=== PATIENT | male | born 1985 | race African-American/Black ===

== ENCOUNTER 2025-03-09 03:48 | Inpatient (IN) | payer OTHER ==
[~2025-03-09] VITALS: Ht 180.3 cm; Wt 123.4 kg
[2025-03-09] VITALS (8 sets, daily range): BP systolic 131; BP diastolic 76; PULSE 73–104; RESP 1–20; TEMP 98.7; O2SAT 96–98
[2025-03-09] MEDS: 0.9%NACL 1000ML 1,000 ML IV ONE (04:25)
[2025-03-09 04:34] LABS: IMMATURE GRANULOCYTE ABSOLUTE 0.02 K/uL (0-1); NUCLEATED RED BLOOD CELLS 0.0 % (0.0-0.19); PLATELET COUNT (AUTO) 285 K/uL (130-400); RED BLOOD CELL COUNT(AUTO) 4.54 MIL/uL (4.50-6.20); RED CELL DISTRIBUTION WIDTH 13.2 % (11.0-15.5); WHITE BLOOD COUNT (AUTO) 5.5 K/uL (4.8-10.8)
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
[2025-03-09 04:44] LABS: CREATININE 1.0 mg/dL (0.5-1.3); GLOMERULAR FILTR. RATE CALC 98.0 mL/min (>90); GLUCOSE,RANDOM 104.0 mg/dL (70-105); SODIUM SERUM 136.0 mmol/L (136-145); UREA NITROGEN, BLOOD 11.0 mg/dL (7-18)
[2025-03-09 04:52] LABS: CREATINE KINASE, TOTAL 185.0 U/L (21-232)
--- NOTE | 2025-03-09 05:27 | HMCIMG ---
EXAM: CR Chest, 1 view CLINICAL HISTORY: Shortness of breath. Dyspnea. COMPARISON: None provided. FINDINGS: The lungs show no infiltrates or other acute findings. No pleural effusion or pneumothorax. The cardiomediastinal silhouette is within normal limits. No acute osseous abnormality. IMPRESSION: No acute cardiopulmonary process is evident. /[place]
--- NOTE | 2025-03-09 06:30 | EKG ---
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
[2025-03-09] MEDS: MAGNESIUM 2GM PREMIX 50ML 50 ML IV SCH (06:52)
[2025-03-09 08:06] LABS: RAPID GROUP A STREP negative (NEGATIVE)
[2025-03-09 08:07] LABS: SARS-CoV-2, RNA, NAAT NEGATIVE SARS CoV-2 (NEGATIVE)
--- NOTE | 2025-03-09 08:07 | NUR ---
PULMO CONSULT LUCA JIMENEZ ACCOUNT DIRECTOR MADE AWARE OF PT
[2025-03-09 08:16] LABS: INFLUENZA TYPE A Negative For Type A (NEGATIVE); INFLUENZA TYPE B Negative For Type B (NEGATIVE)
--- NOTE | 2025-03-09 08:36 | CONS ---
[facility] CONSULTATION NOTE Date Patient Seen: Mar 09, 2025 Time of Visit: 08:36 Supervising Physician: Anton Curran MD Reason for Consultation: [facility] Primary Care Physician: Self Referral Outpatient Specialists: [ ] Inpatient Consults: Asthma PROBLEM LIST: Acute asthma exacerbation, POA Acute hypoxic respiratory failure, POA Normocytic anemia, POA Eosinophilia, POA Hyperglycemia, POA Obesity Seizure disorder Bipolar disorder Obesity BMI of 37.9 HPI: This is a 39-year-old obese male with a past medical history of seizures, bi polar disorder and asthma presented to ED for increased shortness of breaths. As per patient shortness of the breath has progressively worsened. He is currently an inmate in [facility] for a proximally 1-1/2 years. Patient reports he normally takes ICS Alvesco BID and Albuterol rescue inhaler but recently ran out of albuterol. Patient also reports he has history of seizures and takes Dilantin. Verified medications with [facility] Nurse and according to their records patient should be on Dilantin 200 mg p.o. at HS and ziprasidone 40 mg q.h.s. for bipolar disorder. Patient also takes saturating 10 mg p.o. daily. He was admitted By Dr Milton to Medical floor for Asthma Exacerbation and we were consulted for pulmonology. On assessment patient is awake alert and oriented x3. He is in no apparent distress. He is able to speak in the same sentences saturating 95% on room air. Heart rate of 84 beats per minute and hemodynamically stable. Only complain is chest tightness with breathing and SOB. On auscultation bilateral upper and lower lobes expiratory wheezing. In the ED received duo neb, Solu-Medrol 125 mg, Rocephin 2 g and was started on NS at 01:25 mL/hour. Chest x-ray showed no acute cardiopulmonary process as expected with asthma exacerbation with some fla ttening of the diaphragm. On laboratory white count is normal H&H is 12.9/38.6 neutrophils of 37.7 eosinophils of 14.3. Chemistries unremarkable, BNP of 6 glucose 211 mg/dL. Phenytoin leveln was low 0.8. COVID and influenza negative. PAST MEDICAL HX: see above PAST SURGICAL HX: noncontributory SOCIAL HISTORY: No tobacco, ETOH, or illicit drug use Coded Allergies: No Known Drug Allergies (Unverified Allergy, Unknown, 03/09/25) REVIEW OF SYSTEMS: Const: no fever, fatigue, or weight changes Eyes: no recent vision problems ENT: No congestion, ear pain, or sore throat C/V: no chest pain, palpitations or edema Resp:+, cough shortness of breaths and wheezing. GI: No abdominal pain, nausea, vomiting, constipation, or diarrhea : No incontinence of or dyuria M/S: No joint or pain swelling Skin: No rash Neuro: no headache, focal numbness, or weakness, dizziness or seizures Psych: no depression or anxiety Heme: no abnormal bruising or bleeding Lymph: no swollen glands PHYSICAL EXAM: GENERAL: alert, weak, awake oriented x 3 HEENT: EOMI, Sclera non icteric, moist mucosa NECK: Supple, no JVD, trachea midline LUNGS: expiratory wheezing to bilateral upper and lower lobes HEART: Regular rate and rhythm. Normal S1 and S2, without murmurs ABD: Abdomen soft, nontender. Bowel sounds present EXT: No clubbing cyanosis or edema NEURO: Alert and oriented to person, follows commands Vital Signs (last 8hr) Date Time Temp Pulse Resp B/P (MAP) Pulse Ox O2 Delivery O2 Flow Rate FiO2 03/09/25 08:12 84 20 03/09/25 08:12 84 20 N/A Room Air 03/09/25 07:39 97.3 87 18 122/69 94 Room Air* 0 03/09/25 06:34 73 20 03/09/25 06:11 73 18 111/73 95 Room Air* 0 03/09/25 05:08 71 18 121/77 95 Room Air* 0 03/09/25 04:26 79 1 03/09/25 04:26 82 18 112/69 95 Room Air* 0 03/09/25 03:51 99.0 86 20 128/89 100 Nasal Cannula 2.0 LABS: Hematology Labs: Test 03/09/25 04:21 Range/Units White Blood Count 5.5 4.8-10.8 K/uL Red Blood Count 4.54 4.50-6.20 MIL/uL Hemoglobin 12.9 L 14.0-18.0 g/dL Hematocrit 38.6 L 42-54 % Mean Corpuscular Volume 85.0 79-99 fL Mean Corpuscular Hemoglobin 28.4 27.0-33.0 pg Mean Corpuscular Hemoglobin Concent 33.4 32.0-36.0 g/dL Red Cell Distribution Width 13.2 11.0-15.5 % Platelet Count 285 130-400 K/uL Mean Platelet Volume 9.5 7.5-10.5 fL Immature Granulocyte % (Auto) 0.4 0-1 % Neutrophils (%) (Auto) 37.7 L 40.0-77.0 % Lymphocytes (%) (Auto) 39.4 21.0-51.0 % Monocytes (%) (Auto) 7.8 3.0-13.0 % Eosinophils (%) (Auto) 14.3 H 0.0-8.0 % Basophils (%) (Auto) 0.4 0.0-5.0 % Neutrophils # (Auto) 2.1 1.8-7.7 K/uL Lymphocytes # (Auto) 2.2 1.0-4.8 K/uL Monocytes # (Auto) 0.4 0.1-1.0 K/uL Eosinophils # (Auto) 0.79 H 0.00-0.70 K/uL Basophils # (Auto) 0.02 0.00-0.20 K/uL Absolute Immature Granulocyte (auto 0.02 0-1 K/uL Nucleated Red Blood Cells 0.0 0.0-0.19 % Chemistry Labs: Test 03/09/25 04:21 Range/Units Sodium Level 136 136-145 mmol/L Potassium Level 3.5 3.5-5.1 mmol/L Chloride Level 102 101-111 mmol/L Carbon Dioxide Level 28 21-32 mmol/L Blood Urea Nitrogen 11 7-18 mg/dL Creatinine 1.0 0.5-1.3 mg/dL Glomerular Filtration Rate Calc 98 >90 mL/min Random Glucose 104 70-105 mg/dL Total Calcium 8.9 8.5-10.1 mg/dL Total Creatine Kinase 185 21-232 U/L Troponin I High Sensitivity 5.3 4-75 ng/L DIAGNOSTICS / RADIOLOGY RESULTS: [ [facility] [place] [address] [place] [address] IMAGING REPORT Signed PATIENT: JALIL MORENO MR#: [id number] : 1985 SEX: M AGE: 39 LOCATION: [facility] ORDER 4 STATUS: REG ER REPORT#: [id number] SERVICE 2 REASON: Dyspnea/SOB ORDERING PHYSICIAN: BENJIE PAEZ MD PROCEDURE: CXR1VW - CHEST 1VW EXAM: CR Chest, 1 view CLINICAL HISTORY: Shortness of breath. Dyspnea. COMPARISON: None provided. FINDINGS: The lungs show no infiltrates or other acute findings. No pleural effusion or pneumothorax. The cardiomediastinal silhouette is within normal limits. No acute osseous abnormality. IMPRESSION: No acute cardiopulmonary process is evident. /[place] DICTATED BY: ROSY DAVILA Jr., MD DATE: 03/09/25624 ELECTRONICALLY SIGNED BY: ROSY DAVILA Jr., MD DATE: 03/09/25624 ] PLAN Given past medical history of asthma since childhood, patient is likely having an asthma exacerbation. He has been using her inhaler on a daily basis but recently ran out of albuterol inhaler. Nebulizer with beta agonist duoneb and steroid neb with pulmicort will be added. Continue with systemic glucocorticoids and will taper as appropriate. Cover empirically for CAP. Add singulair 10mg po daily and DC cetrizine Continue Seizure medication Dilantin level continue bipolar medication Ziprasidone Pt will require on DC ICS-LABA such as Symbicort for symptom relief and maintenance slow tapering of steroids Teaching on asthma, possible triggers, how to properly use medication follow up with content engineer in 1-2 weeks NEURO: Minimize central acting medications as possible. Maintain fall precautions, adequate lighting during the day PULMONARY: Supplemental 02 as needed. Maintain aspiration precautions at all times CARDIOVASCULAR: Follow hemodynamics. Vital signs per facility protocol GI & NUTRITION: Continue with nutritional support. Continue stool softeners and laxatives as needed. KIDNEYS & ELECTROLYTES: Strict monitoring of intake, output and overall fluid balance. Avoid nephrotoxic medications to the extent possible. Medications to be dosed according to renal function. Monitor electrolytes and replace as needed ENDOCRINE: Maintain blood glucose between 100-180 at all times. Hypoglycemia protocol in place INFECTIOUS DISEASE: Trend temperature, WBC and procalcitonin level Follow cultures, deescalate antibiotics as soon as possible. Panculture if new onset fever ONCOLOGY/HEMATOLOGY/COAGULATION: Monitor for s/s of bleeding Monitor hemoglobin, coagulation studies as needed SKIN: Pressure ulcer prevention per facility protocol Specialty mattress ORTHO/REHAB: Continue PT/OT Prophylaxis: Continue GI and DVT prophylaxis Code Status: Full Resuscitation Disposition: TBD Other: Total patient care time exceeds 35 minutes excluding all procedures. LUCA JIMENEZ [facility] Mar 09, 2025 08:36
--- NOTE | 2025-03-09 08:44 | NUR ---
[facility] OBS NUMBER [id number], FOR 23 HRS OBSERVATION GIVEN BY CORRECTIONAL CARE MANAGEMENT REVIEWER
[2025-03-09] MEDS ORDERED: Solu-medROL 40MG VIAL IVP SCH (09:00)
[2025-03-09] MEDS ORDERED: ENOXAPARIN SODIUM 30 MG/0.3 ML SQ SCH (09:00)
[2025-03-09] MEDS: NAPROXEN 250 MG TAB PO SCH (10:59)
[2025-03-09] MEDS: DOXYCYCLINE HYCLATE 100 MG TABLET PO SCH (10:59)
[2025-03-09] MEDS: Solu-medROL 40MG VIAL IVP SCH (11:00)
[2025-03-09] MEDS: ENOXAPARIN SODIUM 40 MG/0.4 ML SYRINGE SQ SCH (11:00)
[2025-03-09] MEDS: BUDESONIDE 0.5 MG/2 ML INH IH SCH (11:17)
--- NOTE | 2025-03-09 12:56 | NUR ---
Pt refused insulin stating he is not diabetic. Will repeat his blood sugar check in 30 mins.
--- NOTE | 2025-03-09 13:41 | NUR ---
REPEAT BG 199, PT REFUSED INSULIN AGAIN, STATING HE WOULD RATHER WALK AROUND TO BURN IT OFF. WILL BE CONTACTING ADMITTING TEAM.
--- NOTE | 2025-03-09 15:10 | NUR ---
ASSUMED PATIENTS CARE.
--- NOTE | 2025-03-09 15:20 | NUR ---
PT IS TO HAVE HGBA1C [place] ADMITTING MD. HE IS AWARE THAT PT REFUSED INSULIN
--- NOTE | 2025-03-09 17:06 | NUR ---
BLOOD GLUCOSE 164. PATIENT REFUSED INSULIN; STATED TO NOT BE DIABETIC AND THAT HE DID NOT NEED INSULIN. EDUCATED PATIENT ON THE IMPORTANCE TO KEEP BLOOD GLUCOSE BETWEEN NORMAL STANDARD PARAMETERS. PATIENT VERBALIZED UNDERSTANDING.
[2025-03-09] MEDS ORDERED: PHEN100C23 PO (17:09)
[2025-03-09] MEDS ORDERED: ZIPR40CA PO (17:10)
[2025-03-09] MEDS ORDERED: CETI-89 PO (17:10)
--- NOTE | 2025-03-09 17:12 | NUR ---
HOME MEDICATIONS HAVE BEEN REVIEWED; PENDING TO BE RECONSILED BY ADMITTING PHYSICIAN.
--- NOTE | 2025-03-09 19:07 | NUR ---
CALLED RESPIRATORY TEAM TO NOTIFY THEM A BREATHING TREATMENT WAS PENDING. THEY VERBALIZED UNDERSTANDING.
--- NOTE | 2025-03-09 21:05 | NUR ---
[facility]ESA NOT IN PIXES. CALLED PHARMACY. WILL BE SENT.
--- NOTE | 2025-03-09 21:11 | NUR ---
blood glucose 154. Patient refused any insulin coverage . Stated he is not diabetic and does not need insulin. Re educated patient on the importance of maintaining blood glucose between normal standard parameters. Patient verbalized understanding nut stated that he is allowed to refused. I verbalized understanding.
[2025-03-09] MEDS: PHENYTOIN SODIUM 100 MG ERCAP PO SCH (21:19)
[2025-03-09] MEDS: ZIPRASIDONE HCL 20 MG CAPSULE PO SCH (21:31)
--- NOTE | 2025-03-09 21:50 | NUR ---
CALLED MR. NATALYA CROWE, GAVE HIM REPORT. DISCUSSED PLAN OF CARE, PAIN MANAGEMENT, SCHEDULED MEDICATION, IMAGING AND PRIOR HISTORY.
[2025-03-10] VITALS (12 sets, daily range): BP systolic 110–143; BP diastolic 59–81; PULSE 87–103; RESP 16–20; TEMP 97.4–98.5; O2SAT 95–99
[2025-03-10 05:51] LABS: IMMATURE GRANULOCYTE ABSOLUTE 0.05 K/uL (0-1); NUCLEATED RED BLOOD CELLS 0.0 % (0.0-0.19); PLATELET COUNT (AUTO) 293 K/uL (130-400); RED BLOOD CELL COUNT(AUTO) 4.45 MIL/uL (4.50-6.20); RED CELL DISTRIBUTION WIDTH 13.8 % (11.0-15.5); WHITE BLOOD COUNT (AUTO) 12.7 K/uL (4.8-10.8)
[2025-03-10 05:58] LABS: CREATININE 1.0 mg/dL (0.5-1.3); GLOMERULAR FILTR. RATE CALC 98.0 mL/min (>90); GLUCOSE,RANDOM 141.0 mg/dL (70-105); SODIUM SERUM 138.0 mmol/L (136-145); UREA NITROGEN, BLOOD 18.0 mg/dL (7-18)
--- NOTE | 2025-03-10 11:37 | NUR ---
DCP:[facility] Pt currently is an inmate at [facility] and upon DC pt will return to their custody. [facility] will facilitate transportation. Addendum: 03/10/25 at 1140 by HERBIE VILLA SS Amended: Links added.
--- NOTE | 2025-03-10 23:17 | PN ---
[facility] PROGRESS NOTE Date Patient Seen: Mar 10, 2025 Time of Visit: 23:13 Supervising Physician: Dr. Patel Primary Care Physician: Self Referral Outpatient Specialists: [ ] Inpatient Consults: Asthma PROBLEM LIST: Acute asthma exacerbation, POA Acute hypoxic respiratory failure, POA Normocytic anemia, POA Eosinophilia, POA Hyperglycemia, POA Obesity Seizure disorder Bipolar disorder Obesity BMI of 37.9 INTERVAL HISTORY: Patient evaluated at bedside with the CHRISTY present. He is on room air at this time, states that he only feels short of breath during ambulation. He continues on Singulair 10 mg daily at this point. Patient remains on nebulizer and steroid treatment today, we will continue with doxycycline and Rocephin for empiric community-acquired pneumonia treatment. Remainder of treatment plan remains the same from pulmonary perspective, disposition per primary. PLAN Add singulair 10mg po daily and DC cetrizine Continue Seizure medication Dilantin level continue bipolar medication Ziprasidone Pt will require on DC ICS-LABA such as Symbicort for symptom relief and maintenance slow tapering of steroids Teaching on asthma, possible triggers, how to properly use medication follow up with stave log cut off saw operator in 1-2 weeks REVIEW OF SYSTEMS: Const: no fever, fatigue, or weight changes Eyes: no recent vision problems ENT: No congestion, ear pain, or sore throat C/V: no chest pain, palpitations or edema Resp:+, cough shortness of breaths and wheezing. GI: No abdominal pain, nausea, vomiting, constipation, or diarrhea : No incontinence of or dyuria M/S: No joint or pain swelling Skin: No rash Neuro: no headache, focal numbness, or weakness, dizziness or seizures Psych: no depression or anxiety Heme: no abnormal bruising or bleeding Lymph: no swollen glands PHYSICAL EXAM: GENERAL: alert, weak, awake oriented x 3 HEENT: EOMI, Sclera non icteric, moist mucosa NECK: Supple, no JVD, trachea midline LUNGS: expiratory wheezing to bilateral upper and lower lobes HEART: Regular rate and rhythm. Normal S1 and S2, without murmurs ABD: Abdomen soft, nontender. Bowel sounds present EXT: No clubbing cyanosis or edema NEURO: Alert and oriented to person, follows commands Vital Signs (last 8hr) Date Time Temp Pulse Resp B/P (MAP) Pulse Ox O2 Delivery O2 Flow Rate FiO2 03/10/25 20:00 Room Air* 0 21 03/10/25 20:00 97.3 87 19 136/76 96 Room Air 03/10/25 19:14 96 18 N/A Room Air 21 03/10/25 19:13 95 18 03/10/25 15:47 98.1 93 19 143/81 94 Room Air 21 LABS: Hematology Labs: Test 03/10/25 05:37 Range/Units White Blood Count 12.7 H 4.8-10.8 K/uL Red Blood Count 4.45 L 4.50-6.20 MIL/uL Hemoglobin 12.6 L 14.0-18.0 g/dL Hematocrit 38.7 L 42-54 % Mean Corpuscular Volume 87.0 79-99 fL Mean Corpuscular Hemoglobin 28.3 27.0-33.0 pg Mean Corpuscular Hemoglobin Concent 32.6 32.0-36.0 g/dL Red Cell Distribution Width 13.8 11.0-15.5 % Platelet Count 293 130-400 K/uL Mean Platelet Volume 9.5 7.5-10.5 fL Immature Granulocyte % (Auto) 0.4 0-1 % Neutrophils (%) (Auto) 79.7 H 40.0-77.0 % Lymphocytes (%) (Auto) 13.7 L 21.0-51.0 % Monocytes (%) (Auto) 6.1 3.0-13.0 % Eosinophils (%) (Auto) 0.0 0.0-8.0 % Basophils (%) (Auto) 0.1 0.0-5.0 % Neutrophils # (Auto) 10.1 H 1.8-7.7 K/uL Lymphocytes # (Auto) 1.7 1.0-4.8 K/uL Monocytes # (Auto) 0.8 0.1-1.0 K/uL Eosinophils # (Auto) 0.00 0.00-0.70 K/uL Basophils # (Auto) 0.01 0.00-0.20 K/uL Absolute Immature Granulocyte (auto 0.05 0-1 K/uL Nucleated Red Blood Cells 0.0 0.0-0.19 % Chemistry Labs: Test 03/10/25 15:25 03/10/25 05:37 03/09/25 04:21 Range/Units Whole Blood Glucose 210 #H 70-110 MG/DL Sodium Level 138 136-145 mmol/L Potassium Level 4.5 3.5-5.1 mmol/L Chloride Level 104 101-111 mmol/L Carbon Dioxide Level 26 21-32 mmol/L Blood Urea Nitrogen 18 7-18 mg/dL Creatinine 1.0 0.5-1.3 mg/dL Glomerular Filtration Rate Calc 98 >90 mL/min Random Glucose 141 H 70-105 mg/dL Hemoglobin A1c 6.0 4.0-6.0 % Estimated Average Glucose (eAG) 126 70-126 mg/dL Total Calcium 9.4 8.5-10.1 mg/dL Magnesium Level 2.10 1.80-2.40 mg/dL Total Creatine Kinase 185 21-232 U/L Troponin I High Sensitivity 5.3 4-75 ng/L B-Type Natriuretic Peptide 6 0-100 pg/mL DIAGNOSTICS / RADIOLOGY RESULTS: [ ] PLAN Given past medical history of asthma since childhood, patient is likely having an asthma exacerbation. He has been using her inhaler on a daily basis but recently ran out of albuterol inhaler. Nebulizer with beta agonist duoneb and steroid neb with pulmicort will be added. Continue with systemic glucocorticoids and will taper as appropriate. Cover empirically for CAP. Add singulair 10mg po daily and DC cetrizine Continue Seizure medication Dilantin level continue bipolar medication Ziprasidone Pt will require on DC ICS-LABA such as Symbicort for symptom relief and maintenance slow tapering of steroids Teaching on asthma, possible triggers, how to properly use medication follow up with stave log cut off saw operator in 1-2 weeks NEURO: Minimize central acting medications as possible. Maintain fall precautions, adequate lighting during the day PULMONARY: Supplemental 02 as needed. Maintain aspiration precautions at all times CARDIOVASCULAR: Follow hemodynamics. Vital signs per facility protocol GI & NUTRITION: Continue with nutritional support. Continue stool softeners and laxatives as needed. KIDNEYS & ELECTROLYTES: Strict monitoring of intake, output and overall fluid balance. Avoid nephrotoxic medications to the extent possible. Medications to be dosed according to renal function. Monitor electrolytes and replace as needed ENDOCRINE: Maintain blood glucose between 100-180 at all times. Hypoglycemia protocol in place INFECTIOUS DISEASE: Trend temperature, WBC and procalcitonin level Follow cultures, deescalate antibiotics as soon as possible. Panculture if new onset fever ONCOLOGY/HEMATOLOGY/COAGULATION: Monitor for s/s of bleeding Monitor hemoglobin, coagulation studies as needed SKIN: Pressure ulcer prevention per facility protocol Specialty mattress ORTHO/REHAB: Continue PT/OT Prophylaxis: Continue GI and DVT prophylaxis Code Status: Full Resuscitation Disposition: TBD Other: Total patient care time exceeds 35 minutes excluding all procedures. CAROLZ CHISHOLM Mar 10, 2025 23:17
[2025-03-11] VITALS (10 sets, daily range): BP systolic 121–145; BP diastolic 69–78; PULSE 68–95; RESP 16–20; TEMP 97.5–98.6; O2SAT 96–97
[2025-03-11 05:02] LABS: NUCLEATED RED BLOOD CELLS 0.0 % (0.0-0.19); PLATELET COUNT (AUTO) 304.0 K/uL (130-400); RED BLOOD CELL COUNT(AUTO) 4.36 MIL/uL (4.50-6.20); RED CELL DISTRIBUTION WIDTH 14.1 % (11.0-15.5); WHITE BLOOD COUNT (AUTO) 11.9 K/uL (4.8-10.8)
[2025-03-11 05:25] LABS: CREATININE 1.1 mg/dL (0.5-1.3); GLOMERULAR FILTR. RATE CALC 87.0 mL/min (>90); GLUCOSE,RANDOM 131.0 mg/dL (70-105); SODIUM SERUM 139.0 mmol/L (136-145); UREA NITROGEN, BLOOD 19.0 mg/dL (7-18)
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
--- NOTE | 2025-03-11 13:43 | PN ---
INFECTIOUS DISEASE PROGRESS NOTE Date of Service: Mar 10, 2025 SUBJECTIVE: Patient was seen and examined at bedside in room 411. Patient is oriented x3. He reported improvement on the shortness of breath, still having occasional cough and the wheezing is less. Patient continues on doxycycline and ceftriaxone. The WBC trended up to 12.7, patient however is on Solu-Medrol IV. Pulmonology has been consulted and following. No reports of nausea or vomiting. PHYSICAL EXAM EYES: Anicteric. Pupils equal and reactive. HENT: No oral thrush seen, moist Oral mucosa NECK: Supple, no JVD or thyromegaly. LUNGS: Shortness of breath, cough, and wheezing, improving CARDIOVASCULAR: S1, S2 regular. No murmur heard. ABDOMEN: Soft, non tender, bowel sounds present, no organomegaly CENTRAL NERVOUS SYSTEM: Awake, alert, oriented x 3. SKIN: No rashes, no swelling. LYMPHATICS: No peripheral lymphadenopathy. MUSCULOSKELETAL: No joint swelling, erythema or tenderness. EXTREMITIES: No cyanosis or clubbing. BACK: No deformity, no pressure ulcer. GENITOURINARY: No dysuria or hematuria. Vital Sign (Last 12 Hours) 03/11/25 03/11/25 03/11/25 03/11/25 04:00 07:30 08:00 11:28 Temp 97.5 98.1 Pulse 68 84 Resp 20 18 19 18 B/P (MAP) 126/74 121/72 Pulse Ox 97 97 O2 Delivery Room Air N/A Room Air Room Air N/A Room Air FiO2 21 21 21 03/11/25 03/11/25 11:28 11:45 Temp 98.2 Pulse 79 76 Resp 18 18 B/P (MAP) 145/78 Pulse Ox 95 O2 Delivery Room Air FiO2 21 Intake & Output (last 24hrs) 03/10/25 03/10/25 03/11/25 15:00 23:00 07:00 Intake Total 2100 ml Balance 2100 ml LABS: Laboratory: Test 03/11/25 11:23 03/11/25 04:54 03/10/25 05:37 Range/Units Whole Blood Glucose 107 70-110 MG/DL White Blood Count 11.9 H 4.8-10.8 K/uL Red Blood Count 4.36 L 4.50-6.20 MIL/uL Hemoglobin 12.4 L 14.0-18.0 g/dL Hematocrit 38.4 L 42-54 % Mean Corpuscular Volume 88.1 79-99 fL Mean Corpuscular Hemoglobin 28.4 27.0-33.0 pg Mean Corpuscular Hemoglobin Concent 32.3 32.0-36.0 g/dL Red Cell Distribution Width 14.1 11.0-15.5 % Platelet Count 304 130-400 K/uL Mean Platelet Volume 9.5 7.5-10.5 fL Nucleated Red Blood Cells 0.0 0.0-0.19 % Sodium Level 139 136-145 mmol/L Potassium Level 4.3 3.5-5.1 mmol/L Chloride Level 104 101-111 mmol/L Carbon Dioxide Level 27 21-32 mmol/L Blood Urea Nitrogen 19 H 7-18 mg/dL Creatinine 1.1 0.5-1.3 mg/dL Glomerular Filtration Rate Calc 87 >90 mL/min Random Glucose 131 H 70-105 mg/dL Total Calcium 8.7 8.5-10.1 mg/dL Magnesium Level 2.00 1.80-2.40 mg/dL Immature Granulocyte % (Auto) 0.4 0-1 % Neutrophils (%) (Auto) 79.7 H 40.0-77.0 % Lymphocytes (%) (Auto) 13.7 L 21.0-51.0 % Monocytes (%) (Auto) 6.1 3.0-13.0 % Eosinophils (%) (Auto) 0.0 0.0-8.0 % Basophils (%) (Auto) 0.1 0.0-5.0 % Neutrophils # (Auto) 10.1 H 1.8-7.7 K/uL Lymphocytes # (Auto) 1.7 1.0-4.8 K/uL Monocytes # (Auto) 0.8 0.1-1.0 K/uL Eosinophils # (Auto) 0.00 0.00-0.70 K/uL Basophils # (Auto) 0.01 0.00-0.20 K/uL Absolute Immature Granulocyte (auto 0.05 0-1 K/uL Hemoglobin A1c 6.0 4.0-6.0 % Estimated Average Glucose (eAG) 126 70-126 mg/dL ASSESSMENT: Respiratory failure, requiring oxygen support, resolving. Asthma exacerbation. Leukocytosis secondary to IV steroids. Seizure disorder. Obesity. PLAN: Continue IV steroids as currently ordered. Oxygen support as needed. Continue ceftriaxone. Continue doxycycline. Continue GI prophylaxis. Continue bronchodilators. Child Care Teacher has been consulted and following. This case was reviewed and discussed with my supervising physician Dr. Jones and the above assessment and plan was formulated and agreed upon. ATTESTATION BY PHYSICIAN I have seen and examined the patient. I reviewed the documentation, medical decision making, and treatment plan as noted by the mid-level provider above. I agree with the findings and plan of care. BRAYDEN JONES MD, [facility]TA [facility] Mar 11, 2025 13:43
--- NOTE | 2025-03-11 16:01 | PN ---
[facility] PROGRESS NOTE Date Patient Seen: Mar 11, 2025 Time of Visit: 16:01 Supervising Physician: Dr. Patel Primary Care Physician: Self Referral Outpatient Specialists: [ ] Inpatient Consults: Asthma PROBLEM LIST: Acute asthma exacerbation, POA Acute hypoxic respiratory failure, POA Normocytic anemia, POA Eosinophilia, POA Hyperglycemia, POA Obesity Seizure disorder Bipolar disorder Obesity BMI of 37.9 INTERVAL HISTORY: Patient seen at bedside, continues on room air. Patient with no acute respiratory distress and denies any complaints related to his symptoms on admission. White count is 11.9 likely secondary to steroids being administered. We have begun to taper, methylprednisolone decreased to 40 mg b.i.d.. He continues on antibiotics at this time per primary, final recommendations upon discharge below. PLAN Add singulair 10mg po daily and DC cetrizine Continue Seizure medication Dilantin level continue bipolar medication Ziprasidone Pt will require on DC ICS-LABA such as Symbicort for symptom relief and maintenance slow tapering of steroids Teaching on asthma, possible triggers, how to properly use medication follow up with structural test engineer in 1-2 weeks REVIEW OF SYSTEMS: Const: no fever, fatigue, or weight changes Eyes: no recent vision problems ENT: No congestion, ear pain, or sore throat C/V: no chest pain, palpitations or edema Resp:+, cough shortness of breaths and wheezing. GI: No abdominal pain, nausea, vomiting, constipation, or diarrhea : No incontinence of or dyuria M/S: No joint or pain swelling Skin: No rash Neuro: no headache, focal numbness, or weakness, dizziness or seizures Psych: no depression or anxiety Heme: no abnormal bruising or bleeding Lymph: no swollen glands PHYSICAL EXAM: GENERAL: alert, weak, awake oriented x 3 HEENT: EOMI, Sclera non icteric, moist mucosa NECK: Supple, no JVD, trachea midline LUNGS: expiratory wheezing to bilateral upper and lower lobes HEART: Regular rate and rhythm. Normal S1 and S2, without murmurs ABD: Abdomen soft, nontender. Bowel sounds present EXT: No clubbing cyanosis or edema NEURO: Alert and oriented to person, follows commands Vital Signs (last 8hr) Date Time Temp Pulse Resp B/P (MAP) Pulse Ox O2 Delivery O2 Flow Rate FiO2 03/11/25 11:45 98.2 76 18 145/78 95 Room Air 21 03/11/25 11:28 79 18 03/11/25 11:28 18 N/A Room Air 21 LABS: Hematology Labs: Test 03/11/25 04:54 03/10/25 05:37 Range/Units White Blood Count 11.9 H 4.8-10.8 K/uL Red Blood Count 4.36 L 4.50-6.20 MIL/uL Hemoglobin 12.4 L 14.0-18.0 g/dL Hematocrit 38.4 L 42-54 % Mean Corpuscular Volume 88.1 79-99 fL Mean Corpuscular Hemoglobin 28.4 27.0-33.0 pg Mean Corpuscular Hemoglobin Concent 32.3 32.0-36.0 g/dL Red Cell Distribution Width 14.1 11.0-15.5 % Platelet Count 304 130-400 K/uL Mean Platelet Volume 9.5 7.5-10.5 fL Nucleated Red Blood Cells 0.0 0.0-0.19 % Immature Granulocyte % (Auto) 0.4 0-1 % Neutrophils (%) (Auto) 79.7 H 40.0-77.0 % Lymphocytes (%) (Auto) 13.7 L 21.0-51.0 % Monocytes (%) (Auto) 6.1 3.0-13.0 % Eosinophils (%) (Auto) 0.0 0.0-8.0 % Basophils (%) (Auto) 0.1 0.0-5.0 % Neutrophils # (Auto) 10.1 H 1.8-7.7 K/uL Lymphocytes # (Auto) 1.7 1.0-4.8 K/uL Monocytes # (Auto) 0.8 0.1-1.0 K/uL Eosinophils # (Auto) 0.00 0.00-0.70 K/uL Basophils # (Auto) 0.01 0.00-0.20 K/uL Absolute Immature Granulocyte (auto 0.05 0-1 K/uL Chemistry Labs: Test 03/11/25 14:55 03/11/25 04:54 03/10/25 05:37 Range/Units Whole Blood Glucose 169 #H 70-110 MG/DL Sodium Level 139 136-145 mmol/L Potassium Level 4.3 3.5-5.1 mmol/L Chloride Level 104 101-111 mmol/L Carbon Dioxide Level 27 21-32 mmol/L Blood Urea Nitrogen 19 H 7-18 mg/dL Creatinine 1.1 0.5-1.3 mg/dL Glomerular Filtration Rate Calc 87 >90 mL/min Random Glucose 131 H 70-105 mg/dL Total Calcium 8.7 8.5-10.1 mg/dL Magnesium Level 2.00 1.80-2.40 mg/dL Hemoglobin A1c 6.0 4.0-6.0 % Estimated Average Glucose (eAG) 126 70-126 mg/dL DIAGNOSTICS / RADIOLOGY RESULTS: [ ] PLAN Given past medical history of asthma since childhood, patient is likely having an asthma exacerbation. He has been using her inhaler on a daily basis but rec ently ran out of albuterol inhaler. Nebulizer with beta agonist duoneb and steroid neb with pulmicort will be added. Continue with systemic glucocorticoids and will taper as appropriate. Cover empirically for CAP. Add singulair 10mg po daily and DC cetrizine Continue Seizure medication Dilantin level continue bipolar medication Ziprasidone Pt will require on DC ICS-LABA such as Symbicort for symptom relief and maintenance slow tapering of steroids Teaching on asthma, possible triggers, how to properly use medication follow up with structural test engineer in 1-2 weeks NEURO: Minimize central acting medications as possible. Maintain fall precautions, adequate lighting during the day PULMONARY: Supplemental 02 as needed. Maintain aspiration precautions at all times CARDIOVASCULAR: Follow hemodynamics. Vital signs per facility protocol GI & NUTRITION: Continue with nutritional support. Continue stool softeners and laxatives as needed. KIDNEYS & ELECTROLYTES: Strict monitoring of intake, output and overall fluid balance. Avoid nephrotoxic medications to the extent possible. Medications to be dosed according to renal function. Monitor electrolytes and replace as needed ENDOCRINE: Maintain blood glucose between 100-180 at all times. Hypoglycemia protocol in place INFECTIOUS DISEASE: Trend temperature, WBC and procalcitonin level Follow cultures, deescalate antibiotics as soon as possible. Panculture if new onset fever ONCOLOGY/HEMATOLOGY/COAGULATION: Monitor for s/s of bleeding Monitor hemoglobin, coagulation studies as needed SKIN: Pressure ulcer prevention per facility protocol Specialty mattress ORTHO/REHAB: Continue PT/OT Prophylaxis: Continue GI and DVT prophylaxis Code Status: Full Resuscitation Disposition: TBD Other: Total patient care time exceeds 35 minutes excluding all procedures. CARLOZ CHISHOLM Mar 11, 2025 16:01
--- NOTE | 2025-03-11 23:07 | PN ---
INFECTIOUS DISEASE PROGRESS NOTE Date of Service: Mar 11, 2025 SUBJECTIVE: Patient was seen and examined at bedside in room 411. Patient is awake, alert and oriented x3. Patient is afebrile this morning, temperature is 98.1. No dyspnea observe and patient is saturating 97% on room air. Having occasional nonproductive cough but no wheezing. Continues on Solu- Medrol, doxycycline and ceftriaxone. No episodes of emesis reported. We will plan to discharge tomorrow if patient continues to improve. PHYSICAL EXAM EYES: Anicteric. Pupils equal and reactive. HENT: No oral thrush seen, moist Oral mucosa NECK: Supple, no JVD or thyromegaly. LUNGS: Shortness of breath, cough, and wheezing, improving CARDIOVASCULAR: S1, S2 regular. No murmur heard. ABDOMEN: Soft, non tender, bowel sounds present, no organomegaly CENTRAL NERVOUS SYSTEM: Awake, alert, oriented x 3. SKIN: No rashes, no swelling. LYMPHATICS: No peripheral lymphadenopathy. MUSCULOSKELETAL: No joint swelling, erythema or tenderness. EXTREMITIES: No cyanosis or clubbing. BACK: No deformity, no pressure ulcer. GENITOURINARY: No dysuria or hematuria. Vital Sign (Last 12 Hours) 03/11/25 03/11/25 03/11/25 03/11/25 11:28 11:28 11:45 16:00 Temp 98.2 98.6 Pulse 79 76 78 Resp 18 18 18 16 B/P (MAP) 145/78 135/74 Pulse Ox 95 94 O2 Delivery N/A Room Air Room Air Room Air FiO2 21 21 03/11/25 03/11/25 03/11/25 18:20 18:20 20:00 Temp 98.2 Pulse 77 77 94 Resp 18 18 20 B/P (MAP) 127/78 Pulse Ox 96 O2 Delivery N/A Room Air Room Air FiO2 21 Intake & Output (last 24hrs) 03/10/25 03/10/25 03/11/25 15:00 23:00 07:00 Intake Total 2100 ml Balance 2100 ml LABS: Laboratory: Test 03/11/25 19:54 03/11/25 04:54 03/10/25 05:37 Range/Units Whole Blood Glucose 199 H 70-110 MG/DL White Blood Count 11.9 H 4.8-10.8 K/uL Red Blood Count 4.36 L 4.50-6.20 MIL/uL Hemoglobin 12.4 L 14.0-18.0 g/dL Hematocrit 38.4 L 42-54 % Mean Corpuscular Volume 88.1 79-99 fL Mean Corpuscular Hemoglobin 28.4 27.0-33.0 pg Mean Corpuscular Hemoglobin Concent 32.3 32.0-36.0 g/dL Red Cell Distribution Width 14.1 11.0-15.5 % Platelet Count 304 130-400 K/uL Mean Platelet Volume 9.5 7.5-10.5 fL Nucleated Red Blood Cells 0.0 0.0-0.19 % Sodium Level 139 136-145 mmol/L Potassium Level 4.3 3.5-5.1 mmol/L Chloride Level 104 101-111 mmol/L Carbon Dioxide Level 27 21-32 mmol/L Blood Urea Nitrogen 19 H 7-18 mg/dL Creatinine 1.1 0.5-1.3 mg/dL Glomerular Filtration Rate Calc 87 >90 mL/min Random Glucose 131 H 70-105 mg/dL Total Calcium 8.7 8.5-10.1 mg/dL Magnesium Level 2.00 1.80-2.40 mg/dL Immature Granulocyte % (Auto) 0.4 0-1 % Neutrophils (%) (Auto) 79.7 H 40.0-77.0 % Lymphocytes (%) (Auto) 13.7 L 21.0-51.0 % Monocytes (%) (Auto) 6.1 3.0-13.0 % Eosinophils (%) (Auto) 0.0 0.0-8.0 % Basophils (%) (Auto) 0.1 0.0-5.0 % Neutrophils # (Auto) 10.1 H 1.8-7.7 K/uL Lymphocytes # (Auto) 1.7 1.0-4.8 K/uL Monocytes # (Auto) 0.8 0.1-1.0 K/uL Eosinophils # (Auto) 0.00 0.00-0.70 K/uL Basophils # (Auto) 0.01 0.00-0.20 K/uL Absolute Immature Granulocyte (auto 0.05 0-1 K/uL Hemoglobin A1c 6.0 4.0-6.0 % Estimated Average Glucose (eAG) 126 70-126 mg/dL ASSESSMENT: Respiratory failure, resolved. Asthma exacerbation. Leukocytosis secondary to IV steroids. Seizure disorder. Obesity. PLAN: Continue ceftriaxone. Continue doxycycline. Continue GI prophylaxis. Continue IV steroids as currently ordered. Oxygen support as needed. We will plan to discharge tomorrow if continues to improve and if cleared by pulmonology. This case was reviewed and discussed with my supervising physician Dr. Jones and the above assessment and plan was formulated and agreed upon. ATTESTATION BY PHYSICIAN I have seen and examined the patient. I reviewed the documentation, medical decision making, and treatment plan as noted by the mid-level provider above. I agree with the findings and plan of care. BRAYDEN JONES MD, [facility] Mar 11, 2025 23:07
[2025-03-12] VITALS: BP 128/73; PULSE 84; RESP 20; TEMP 97.8
[2025-03-12 04:00] VITALS: BP 146/78; PULSE 66; RESP 20; TEMP 97.8
[2025-03-12 04:15] LABS: NUCLEATED RED BLOOD CELLS 0.0 % (0.0-0.19); PLATELET COUNT (AUTO) 292.0 K/uL (130-400); RED BLOOD CELL COUNT(AUTO) 4.17 MIL/uL (4.50-6.20); RED CELL DISTRIBUTION WIDTH 13.9 % (11.0-15.5); WHITE BLOOD COUNT (AUTO) 10.8 K/uL (4.8-10.8)
[2025-03-12 04:51] LABS: CREATININE 0.9 mg/dL (0.5-1.3); GLOMERULAR FILTR. RATE CALC 111.0 mL/min (>90); GLUCOSE,RANDOM 123.0 mg/dL (70-105); SODIUM SERUM 138.0 mmol/L (136-145); UREA NITROGEN, BLOOD 18.0 mg/dL (7-18)
[2025-03-12 07:30] VITALS: O2SAT 98
[2025-03-12 08:00] VITALS: BP 135/88; PULSE 81; RESP 16; TEMP 97.4
[2025-03-12] MEDS: Solu-medROL 40MG VIAL IVP SCH (08:29)
[2025-03-12 12:00] VITALS: BP 142/73; PULSE 65; RESP 16; TEMP 98.2
[2025-03-12 16:00] VITALS: BP 132/66; PULSE 81; RESP 16; TEMP 98.4
--- NOTE | 2025-03-12 17:09 | DS ---
Discharge Summary DIAGNOSE(S): Asthma exacerbation HOSPITAL COURSE SUMMARY: A 39-year-old male with history of obesity, seizure disorder, and childhood asthma, who was brought into the Emergency Room with cough and shortness of breath. The patient noticed coughing worsen within the last few days with some difficulty breathing. The patient in the ER found to have asthma exacerbation. Patient was admitted and started on Rocephin and Doxycyclin. Pulmonology was consulted and recommendations were given. Patient will d/c on Levaquin , steroid and inhalers. LOG BRANDER(S): Cabin Outfitter PROBLEM(S): Respiratory failure, resolved. Asthma exacerbation. Leukocytosis secondary to IV steroids. Seizure disorder. Obesity. DISCHARGE INSTRUCTIONS: Follow up with laborer aquatic life 1/2 weeks Start Levaquin PO upon DC Continue steroids PO Start Symbicort for asthma maintenance Follow up with PCP Prescriptions given to nurse This case has been discussed with my supervising physician, Dr. Milton. the case has been discussed and agreed upon. Home Meds Reported Medications Cetirizine HCl (Zyrtec) 10 Mg Tablet, 1 TAB PO DAILY for allergy symptoms for 30 Days, #30 TAB 0 Refills 03/09/25 Ziprasidone HCl (Geodon) 40 Mg Cap, 40 MG PO HS, CAP 03/09/25 Phenytoin Sodium Extended (Dilantin) 100 Mg Capsule, 1 CAP PO TID for 30 Days, #90 CAP 0 Refills 03/09/25 Time spent arranging discharge: 1-30 minutes WIL KEEN Mar 12, 2025 17:09
--- NOTE | 2025-03-12 17:19 | NUR ---
DISCHARGE PIV DC'D PATIENT GIVEN 2 PRESCRIPTIONS IN FOLDER. ONE BY [address]. JONES FOR LEVOFLOXACIN AND PREDNISONE. ANOTHER BY WIL KEEN FOR SYMBICORT. TRIED TO CALL [facility] MULTIPLE TIMES TO NOTIFY THEM OF PATIENT DISCHARGING BUT THEY NEVER ANSWERED. I INFORMED THE GUARDS THAT ARE WITH PATIENT THAT I TRIED MULTIPLE TIMES, BUT ACCORDING TO ONE GUARD THEY NEVER ANSWER. GUARD STATED HE WOULD LET THEM KNOW. I GAVE GUARD MY NUMBER TO GIVE TO THE RESIDENTIAL IN ORDER TO REACH OUT IF NEEDING INFORMATION. STILL WAITING ON THEIR TRANSPORT TO ARRIVE. ALL QUESTIONS ANSWERED PRIOR TO DISCHARGE.
--- NOTE | 2025-03-12 22:51 | PN ---
[facility] PROGRESS NOTE Date Patient Seen: Mar 12, 2025 Time of Visit: 22:51 Supervising Physician: Dr. Marlow Primary Care Physician: Self Referral Outpatient Specialists: [ ] Inpatient Consults: Asthma PROBLEM LIST: Acute asthma exacerbation, POA Acute hypoxic respiratory failure, POA Normocytic anemia, POA Eosinophilia, POA Hyperglycemia, POA Obesity Seizure disorder Bipolar disorder Obesity BMI of 37.9 INTERVAL HISTORY: Patient evaluated at bedside, he is sitting up and and on room air, breathing is unlabored with normal rate. He has been ambulating without any shortness of breath, denies any wheezing at this time. Recommendations for additional discharge medications below. Has a prior prescription for albuterol rescue inhaler. Advised to follow up with the [facility]. He has clear discharge from a pulmonary perspective. PLAN Add singulair 10mg po daily and DC cetrizine Continue Seizure medication Dilantin level continue bipolar medication Ziprasidone Pt will require on DC ICS-LABA such as Symbicort for symptom relief and maintenance slow tapering of steroids Teaching on asthma, possible triggers, how to properly use medication follow up with [facility] in 1-2 weeks REVIEW OF SYSTEMS: Const: no fever, fatigue, or weight changes Eyes: no recent vision problems ENT: No congestion, ear pain, or sore throat C/V: no chest pain, palpitations or edema Resp:+, cough shortness of breaths and wheezing. GI: No abdominal pain, nausea, vomiting, constipation, or diarrhea : No incontinence of or dyuria M/S: No joint or pain swelling Skin: No rash Neuro: no headache, focal numbness, or weakness, dizziness or seizures Psych: no depression or anxiety Heme: no abnormal bruising or bleeding Lymph: no swollen glands PHYSICAL EXAM: GENERAL: alert, weak, awake oriented x 3 HEENT: EOMI, Sclera non icteric, moist mucosa NECK: Supple, no JVD, trachea midline LUNGS: expiratory wheezing to bilateral upper and lower lobes HEART: Regular rate and rhythm. Normal S1 and S2, without murmurs ABD: Abdomen soft, nontender. Bowel sounds present EXT: No clubbing cyanosis or edema NEURO: Alert and oriented to person, follows commands Vital Signs (last 8hr) Date Time Temp Pulse Resp B/P (MAP) Pulse Ox O2 Delivery O2 Flow Rate FiO2 03/12/25 16:00 98.4 81 16 132/66 97 Room Air LABS: Hematology Labs: Test 03/12/25 03:51 Range/Units White Blood Count 10.8 4.8-10.8 K/uL Red Blood Count 4.17 L 4.50-6.20 MIL/uL Hemoglobin 11.8 L 14.0-18.0 g/dL Hematocrit 36.6 L 42-54 % Mean Corpuscular Volume 87.8 79-99 fL Mean Corpuscular Hemoglobin 28.3 27.0-33.0 pg Mean Corpuscular Hemoglobin Concent 32.2 32.0-36.0 g/dL Red Cell Distribution Width 13.9 11.0-15.5 % Platelet Count 292 130-400 K/uL Mean Platelet Volume 9.8 7.5-10.5 fL Nucleated Red Blood Cells 0.0 0.0-0.19 % Chemistry Labs: Test 03/12/25 11:19 03/12/25 03:51 Range/Units Whole Blood Glucose 106 70-110 MG/DL Sodium Level 138 136-145 mmol/L Potassium Level 4.1 3.5-5.1 mmol/L Chloride Level 103 101-111 mmol/L Carbon Dioxide Level 30 21-32 mmol/L Blood Urea Nitrogen 18 7-18 mg/dL Creatinine 0.9 0.5-1.3 mg/dL Glomerular Filtration Rate Calc 111 >90 mL/min Random Glucose 123 H 70-105 mg/dL Total Calcium 8.6 8.5-10.1 mg/dL Magnesium Level 2.20 1.80-2.40 mg/dL DIAGNOSTICS / RADIOLOGY RESULTS: [ ] PLAN Given past medical history of asthma since childhood, patient is likely having an asthma exacerbation. He has been using her inhaler on a daily basis but recently ran out of albuterol inhaler. Nebulizer with beta agonist duoneb and steroid neb with pulmicort will be added. Continue with systemic glucocorticoids and will taper as appropriate. Cover empirically for CAP. Add singulair 10mg po daily and DC cetrizine Continue Seizure medication Dilantin level continue bipolar medication Ziprasidone Pt will require on DC ICS-LABA such as Symbicort for symptom relief and maintenance slow tapering of steroids Teaching on asthma, possible triggers, how to properly use medication follow up with [facility] in 1-2 weeks NEURO: Minimize central acting medications as possible. Maintain fall precautions, adequate lighting during the day PULMONARY: Supplemental 02 as needed. Maintain aspiration precautions at all times CARDIOVASCULAR: Follow hemodynamics. Vital signs per facility protocol GI & NUTRITION: Continue with nutritional support. Continue stool softeners and laxatives as needed. KIDNEYS & ELECTROLYTES: Strict monitoring of intake, output and overall fluid balance. Avoid nephrotoxic medications to the extent possible. Medications to be dosed according to renal function. Monitor electrolytes and replace as needed ENDOCRINE: Maintain blood glucose between 100-180 at all times. Hypoglycemia protocol in place INFECTIOUS DISEASE: Trend temperature, WBC and procalcitonin level Follow cultures, deescalate antibiotics as soon as possible. Panculture if new onset fever ONCOLOGY/HEMATOLOGY/COAGULATION: Monitor for s/s of bleeding Monitor hemoglobin, coagulation studies as needed SKIN: Pressure ulcer prevention per facility protocol Specialty mattress ORTHO/REHAB: Continue PT/OT Prophylaxis: Continue GI and DVT prophylaxis Code Status: Full Resuscitation Disposition: TBD Other: Total patient care time exceeds 35 minutes excluding all procedures. CARLOZ CHISHOLM Mar 12, 2025 22:51
== END 2025-03-12 17:45 | DRG 202 ==
LOC: EDH 03:48 → EEVIPCON 07:50 → EDHIP 07:50 → 4BH 21:46
PROVIDERS: ADMIT Internal Medicine Infectious Disease; ATTEND Internal Medicine Infectious Disease
DX: J45.901 Unspecified asthma with (acute) exacerbation (principal); J96.01 Acute respiratory failure with hypoxia; D64.9 Anemia, unspecified; D72.10 Eosinophilia, unspecified; Z68.37 Body mass index [BMI] 37.0-37.9, adult; E66.9 Obesity, unspecified; G40.909 Epilepsy, unspecified, not intractable, without status epilepticus; T38.0X5A Adverse effect of glucocorticoids and synthetic analogues, initial encounter; R73.9 Hyperglycemia, unspecified; F31.9 Bipolar disorder, unspecified; Z79.899 Other long term (current) drug therapy; Z87.891 Personal history of nicotine dependence
CPT/HCPCS: 36415; 71045; 80048; 80185; 82550; 82948; 83036; 83735; 83880; 84484; 85025; 85027; 87635; 87804; 87880; 93005; 94640; 94664; 96374; 96375; 99291; G0378; J0696; J1650; J1815; J2919; J3475; J7030